=== PATIENT | male | born 1940 | race Caucasian/White ===

== ENCOUNTER 2017-02-24 21:59 | Emergency (ER) | payer MEDICARE, MEDICAID ==
[2017-02-24 22:16] VITALS: BP 144/76
--- NOTE | 2017-02-24 22:46 | EDM.PDOC ---
[id number] Complaint: RIGHT LEG SWOLLEN Time Seen by Provider: 02/24/17 22:28 Source of Information: Reports: Patient History Limitations: Reports: No Limitations - History of Present Illness INITIAL COMMENTS - FREE TEXT/NARRATIVE: 76 y/o M presents with RLE pain/swelling. He is 5 days post=op from R hip replacement completed at [facility] by Dr. Chinchilla. States he thinks everything went well. He was discharged 3 days ago. He comes in for evaluation because today he noticed that his right leg has become increasingly swollen and painful. He states that he did not have any injury to the leg. He has been getting around okay. He's been taking his medication as prescribed and has had good pain control. He is mostly concerned that the leg itself seems bigger and more swollen today. He was advised by someone that he spoke to with the orthopedic office who encouraged him to come into the evaluated for a blood clot. No chest pain or shortness of breath. No fever. No additional complaint. No numbness. No weakness. Right Hip Pain Score (Numeric/FACES): 6 - Related Data Allergies Allergy/AdvReac Type Severity Reaction Status Date / Time ezetimibe [From Vytorin] Allergy Cannot Verified 02/24/17 22:16 Remember Penicillins Allergy Hives Verified 02/24/17 22:16 pravastatin Allergy Cannot Verified 02/24/17 22:16 Remember simvastatin [From Vytorin] Allergy Cannot Verified 02/24/17 22:16 Remember rosuvastatin calcium AdvReac Muscle Verified 02/24/17 22:16 [From Crestor] Aches Home Meds: Home Meds Nitroglycerin [Nitrostat] 0.4 mg PO ONCALL PRN 11/05/15 [History] Acetaminophen 650 mg PO Q6H PRN 02/24/17 [History] Aspirin 325 mg PO BID 02/24/17 [History] Ibuprofen 1 - 2 tab PO ASDIRECTED PRN 02/24/17 [History] Meloxicam 15 mg PO DAILY 02/24/17 [History] Multivitamin [Multivitamins] 1 mg PO DAILY 02/24/17 [History] Sennosides/Docusate Sodium [Senna-Docusate Sodium] 1 tab PO BID 02/24/17 [ History] oxyCODONE 1 - 2 tab PO Q4H PRN 02/24/17 [History] traMADol [Ultram] 50 mg PO Q6H PRN 02/24/17 [History] Past Medical History HEENT History: Reports: Impaired Vision Other HEENT History: wears eyeglasses Cardiovascular History: Reports: CAD, High Cholesterol, MS, SOB on Exertion Gastrointestinal History: Reports: GERD Genitourinary History: Reports: Other (See Below) Other Genitourinary History: prostate CA Musculoskeletal History: Reports: Osteoarthritis Oncologic (Cancer) History: Reports: Prostate - Infectious Disease History Infectious Disease History: Reports: Chicken Pox - Past Surgical History Cardiovascular Surgical History: Reports: Carotid Stents Musculoskeletal Surgical History: Reports: Hip Replacement Social & Family History - Tobacco Use Smoking Status *Q: Never Smoker Second Hand Smoke Exposure: No - Caffeine Use Caffeine Use: Reports: Coffee - Recreational Drug Use Recreational Drug Use: No - Living Situation & Occupation Living situation: Reports: Occupation: Retired Review of Systems - Review of Systems Review Of Systems: See Below Constitutional: Denies: Fever Respiratory: Denies: Shortness of Breath, Cough Cardiovascular: Denies: Chest Pain GI/Abdominal: Denies: Abdominal Pain Musculoskeletal: Reports: Leg Pain Neurological: Reports: No Symptoms. Denies: Paresthesia ED EXAM, GENERAL - Physical Exam Exam: See Below Exam Limited By: No Limitations General Appearance: Alert, WD/WN, No Apparent Distress Eye Exam: Bilateral Eye: PERRL Ears: Normal External Exam Nose: Normal Inspection, Normal Mucosa, No Blood Throat/Mouth: Normal Inspection, Normal Voice, No Airway Compromise Head: Atraumatic, Normocephalic Neck: Normal Inspection, Supple, Non-Tender, Full Range of Motion Respiratory/Chest: No Respiratory Distress, Lungs Clear, Normal Breath Sounds, Chest Non-Tender Cardiovascular: Normal Peripheral Pulses, Regular Rate, Rhythm, No Murmur GI/Abdominal: Soft, Non-Tender, No Distention. No: Rebound Extremities: Other (R hip incision with andrzej in place, no discharge, no surrounding erythema/TTP. Entire RLE is swollen compared to left, from hip through foot. Skin throughout is mildly erythematous and warm to the touch. Mild calf TTP. No crepitus. Foot is warm and well perfused, 2+ DP pulse. Distal motor/sensation intact.) Neurological: Alert, Oriented, Normal Cognition, No Motor/Sensory Deficits Psychiatric: Normal Affect, Normal Mood Skin Exam: Warm, Dry, Intact Course - Vital Signs Last Recorded V/S: Last Vital Signs Temp 36.9 C 02/24/17 22:10 Pulse 79 02/24/17 22:10 Resp 18 02/24/17 22:10 BP 144/76 H 02/24/17 22:10 Pulse Ox 92 L 02/24/17 22:10 - Orders/Labs/Meds Orders: Active Orders 24 hr Category Date Time Status VL Duplex Lwr Ext Veins Ltd Rt [US] Stat Exams 02/24/17 22:46 Taken Labs: Laboratory Tests 02/24/17 02/24/17 Range/Units 23:14 23:14 WBC 8.25 (4.23-9.07) K/mm3 RBC 3.70 L (4.63-6.08) M/mm3 Hgb 11.5 L (13.7-17.5) gm/L Hct 33.4 L (40.1-51.0) % MCV 90.3 (79.0-92.2) fl MCH 31.1 (25.7-32.2) pg MCHC 34.4 (32.2-35.5) g/dl RDW Std Deviation 40.9 (35.1-43.9) fL Plt Count 234 (163-337) K/mm3 MPV 7.8 L (9.4-12.3) fl Neut % (Auto) 77.8 H (34.0-67.9) % Lymph % (Auto) 10.5 L (21.8-53.1) % [place] % (Auto) 6.9 (5.3-12.2) % Eos % (Auto) 4.1 (0.8-7.0) Baso % (Auto) 0.5 (0.1-1.2) % Neut # (Auto) 6.41 H (1.78-5.38) K/mm3 Lymph # (Auto) 0.87 L (1.32-3.57) K/mm3 [place] # (Auto) 0.57 (0.30-0.82) K/mm3 Eos # (Auto) 0.34 (0.04-0.54) K/mm3 Baso # (Auto) 0.04 (0.01-0.08) K/mm3 Sodium 138 (136-145) mEq/L Potassium 4.6 (3.5-5.1) mEq/L Chloride 103 (98-107) mEq/L Carbon Dioxide 28 (21-32) mEq/L Anion Gap 11.6 (5-15) BUN 13 (7-18) mg/dL Creatinine 1.0 (0.7-1.3) mg/dL Est Cr Clr Drug Dosing 60.59 mL/min Estimated GFR (MDRD) > 60 (>60) mL/min BUN/Creatinine Ratio 13.0 L (14-18) Glucose 150 H (83-115) mg/dL Calcium 8.5 (8.5-10.1) mg/dL Total Bilirubin 0.5 (0.2-1.0) mg/dL AST 54 H (15-37) U/L ALT 59 (16-63) U/L Alkaline Phosphatase 101 (46-116) U/L Total Protein 6.6 (6.4-8.2) g/dl Albumin 2.6 L (3.4-5.0) g/dl Globulin 4.0 gm/dL Albumin/Globulin Ratio 0.7 L (1-2) Meds: Medications Discontinued Medications Generic Name Dose Route Start Last Admin Trade Name Freq PRN Reason Stop Dose Admin Oxycodone/Acetaminophen 1 tab 02/25/17 01:27 02/25/17 01:30 Percocet 325-5 Mg PO 02/25/17 01:28 1 tab STAT STA Administration - Re-Assessments/Exams Free Text/Narrative Re-Assessment/Exam: 02/25/17 01:08 RLE venous doppler neg for DVT. Reexamined pt. Exam is not really c/w with cellulitis as entire leg is swollen, not particularly warm to touch. Labs normal. Suspect expected post-op swelling/course. Discussed with Dr. Emery, orthopedics with [facility], who agrees and has no additional specific concerns. Has f/u scheduled with Dr. Chinchilla in [place] in 3 days (Sunday). Discussed return precautions. 02/25/17 02:48 Departure - Departure Time of Disposition: 01:18 Disposition: Home, Self-Care 01 Clinical Impression: Right leg swelling - Discharge Information Instructions: Edema, [id number] Referrals: Tammy De Jesus MD [Primary Care Provider] - Forms: ED Department Discharge Additional Instructions: 1. It is ok to prop up leg on a couple of pillows when you are lying in bed. This will help with the swelling. 2. Follow up with Dr. Chinchilla as planned. 3. Return to the Emergency Department if you have worsening pain, fever, worsening swelling, or other concerning symptoms. - My Orders Last 24 Hours: My Active Orders 02/24/17 22:46 VL Duplex Lwr Ext Veins Ltd Rt [US] Stat - Assessment/Plan Last 24 Hours: My Active Orders 02/24/17 22:46 VL Duplex Lwr Ext Veins Ltd Rt [US] Stat
[2017-02-25] MEDS ORDERED: Acetaminophen/oxyCODONE 325-5 MG Tab PO STA (01:27)
--- NOTE | 2017-02-25 06:50 | US ---
Right lower extremity deep venous ultrasound: Duplex and color flow imaging was obtained of the right common femoral, proximal greater saphenous, superficial femoral, popliteal, posterior tibial and peroneal veins. Left common femoral vein was also evaluated. Findings: Normal phasic flow, augmentation and compression are seen. Impression: 1. No evidence of deep venous thrombosis is seen within the right lower extremity or within the left common femoral vein. I agree with preliminary report issued by [facility] ([facility] report finalized on 02/25/17, 1:35 AM Central Time)
== END 2017-02-25 01:30 | disposition home or self-care (01) ==
LOC: JD.ED 21:59
DX: M79.89 Other specified soft tissue disorders (principal); I25.10 Atherosclerotic heart disease of native coronary artery without angina pectoris; E78.00 Pure hypercholesterolemia, unspecified; I25.2 Old myocardial infarction; K21.9 Gastro-esophageal reflux disease without esophagitis; M19.90 Unspecified osteoarthritis, unspecified site; Z88.0 Allergy status to penicillin; Z88.8 Allergy status to other drugs, medicaments and biological substances; Z79.82 Long term (current) use of aspirin; Z79.899 Other long term (current) drug therapy; Z96.641 Presence of right artificial hip joint
CPT/HCPCS: 36415; 80053; 85025; 93971; 99284; A9270; 99283

== ENCOUNTER 2017-12-27 09:47 | Day surgery (SDC) | payer MEDICARE, MEDICAID ==
[~2017-12-27 09:47] MED LIST: Dexamethasone 4 MG/ML 5 ML MDV ONE; Lactated Ringers 1,000 ML IV SCH; Lactated Ringers 1,000 ML ONE; Lidocaine 1% 4 ML ONE; Lidocaine 1%/Sod Bicarbonate in NS 8.4% 1 ML Syringe IDERM PRN; Ondansetron 4 MG/2 ML SDV ONE; Propofol 200 MG/20 ML SDV ONE; Sodium Chloride 0.9% 10 ML Syringe FLUSH PRN; ceFAZolin 1 GM Vial ONE; fentaNYL 100 MCG/2 ML SDV ONE
--- NOTE | 2017-12-27 10:29 | PCM.PREANE ---
Preanesthetic Assessment - Anesthesia/Transfusion/Family Hx Anesthesia History: Prior Anesthesia Without Reaction Family History of Anesthesia Reaction: No Transfusion History: No Prior Transfusion(s) Intubation History: Unknown - Review of Systems General: No Symptoms Pulmonary: No Symptoms Cardiovascular: No Symptoms (History of CO, angioplasty in 2006 with 3 stents placed as well, HTN, CAD), Chest Pain (6 months ago with nitroglycerin taken.), Lightheadedness (postural changes.) Gastrointestinal: No Symptoms (GERD) Neurological: No Symptoms, Numbness (CTS- bilateral hands) Other: Reports: None, Easy Bruising - Physical Assessment NPO Status Date: 12/26/17 NPO Status Time: 22:00 Pulse: 50 O2 Sat by Pulse Oximetry: 94 Respiratory Rate: 18 Blood Pressure: 143/81 Temperature: 36.3 C Height: 1.6 m Weight: 80 kg ASA Class: 3 Mental Status: Alert & Oriented x3 Airway Class: Mallampati = 2 Dentition: Reports: Normal Dentition, Missing Tooth/Teeth, Caries Thyro-Mental Finger Breadths: 3 Mouth Opening Finger Breadths: 3 ROM/Head Extension: Full Lungs: Clear to Auscultation, Normal Respiratory Effort Cardiovascular: Regular Rate, Regular Rhythm, No Murmurs - Lab Values: Lab values reviewed and noted and within acceptable ranges to proceed with scheduled procedure. MRSA negative. - Imaging/EKG Impressions: EK11/13/2016/ SB, borderline left axis deviation, Inferior Twave abnormalities. Echocardiogram: EF 70-75%, Mild mitral valve regurgitation Stress Test: (2017) unremarkable EK-SR rate= 51 - Allergies Allergies/Adverse Reactions: Allergies Allergy/AdvReac Type Severity Reaction Status Date / Time ezetimibe [From Vytorin] Allergy Cannot Verified 12/26/17 15:40 Remember Penicillins Allergy Hives Verified 12/26/17 15:40 pravastatin Allergy Cannot Verified 12/26/17 15:40 Remember simvastatin [From Vytorin] Allergy Cannot Verified 12/26/17 15:40 Remember rosuvastatin calcium AdvReac Muscle Verified 12/26/17 15:40 [From Crestor] Aches - Anesthesia Plan Pre-Op Medication Ordered: None - Acknowledgements Anesthesia Type Planned: General Anesthesia, MAC Pt an Appropriate Candidate for the Planned Anesthesia: Yes Alternatives and Risks of Anesthesia Discussed w Pt/Guardian: Yes Pt/Guardian Understands and Agrees with Anesthesia Plan: Yes PreAnesthesia Questionnaire HEENT History: Reports: Allergic Rhinitis, Impaired Vision Other HEENT History: wears eyeglasses Cardiovascular History: Reports: CAD, High Cholesterol, CO, SOB on Exertion, Stents, Other (See Below) Other Cardiovascular History: bradycardia Respiratory History: Reports: None Gastrointestinal History: Reports: GERD Genitourinary History: Reports: BPH, Other (See Below) Other Genitourinary History: prostate CA [employer]GROUND [employer]UCK [employer] History: Reports: None Musculoskeletal History: Reports: Osteoarthritis, Other (See Below) Other Musculoskeletal History: carpal tunnel syndrome, restless leg syndrome Neurological History: Reports: None Psychiatric History: Reports: None Endocrine/Metabolic History: Reports: None Hematologic History: Reports: None Immunologic History: Reports: None Oncologic (Cancer) History: Reports: Prostate, Squamous Cell Carcinoma - Infectious Disease History Infectious Disease History: Reports: Chicken Pox - Past Surgical History Cardiovascular Surgical History: Reports: Carotid Stents Respiratory Surgical History: Reports: None GI Surgical History: Reports: None Female Surgical History: Reports: None Male Surgical History: Reports: None Endocrine Surgical History: Reports: None Neurological Surgical History: Reports: None Musculoskeletal Surgical History: Reports: Hip Replacement Dermatological Surgical History: Reports: Skin Biopsy, Other (See Below) - SUBSTANCE USE Smoking Status *Q: Never Smoker Recreational Drug Use History: No - HOME MEDS Home Medications: Home Meds Acetaminophen 650 mg PO Q6H PRN 02/24/17 [History] Multivitamin [Multivitamins] 1 mg PO DAILY 02/24/17 [History] Aspirin [Adult Aspirin] 81 mg PO DAILY 12/26/17 [History] Ibuprofen 600 mg PO Q6H PRN 12/26/17 [History] Nitroglycerin [Nitrostat] 0.4 mg PO Q5M PRN 12/26/17 [History] Pantoprazole Sodium [Protonix] 40 mg PO DAILY 12/26/17 [History] Propylene Glycol/PEG 400/Pf [Systane 0.3-0.4% Eye Drops] 1 drop EYEBOTH ASDIRECTED 12/26/17 [History] [place] 500 mg PO DAILY 12/26/17 [History] Tamsulosin [Flomax] 0.4 mg PO DAILY 12/26/17 [History] Zinc 50 mg PO DAILY 05/23/18 [History] - CURRENT (IN HOUSE) MEDS Current Meds: Current Medications Lactated Ringer's (Ringers, Lactated) 1,000 mls @ 125 mls/hr IV ASDIRECTED YORDY Stop: 12/27/17 23:00 Lidocaine/Sodium Bicarbonate (Buffered Lidocaine 1% In Ns 8.4%) 0.25 ml IDERM ONETIME PRN PRN Reason: Prior to IV Start Stop: 12/27/17 18:00 Sodium Chloride (Saline Flush) 10 ml FLUSH ASDIRECTED PRN PRN Reason: Keep Vein Open Stop: 12/27/17 18:00 Discontinued Medications Cefazolin Sodium (Ancef) Confirm Administered Dose 2 gm .ROUTE .STK-MED ONE Stop: 12/27/17 07:50 Dexamethasone (Dexamethasone) Confirm Administered Dose 20 mg .ROUTE .STK-MED ONE Stop: 12/27/17 07:51 Fentanyl (Sublimaze) Confirm Administered Dose 100 mcg .ROUTE .STK-MED ONE Stop: 12/27/17 07:51 Lactated Ringer's (Ringers, Lactated) Confirm Administered Dose 1,000 mls @ as directed .ROUTE .STK-MED ONE Stop: 12/27/17 07:50 Lidocaine HCl (Xylocaine-Mpf 1%) Confirm Administered Dose 4 mls @ as directed .ROUTE .STK-MED ONE Stop: 12/27/17 07:51 Ondansetron HCl (Zofran) Confirm Administered Dose 4 mg .ROUTE .STK-MED ONE Stop: 12/27/17 07:50 Propofol (Diprivan 20 Ml) Confirm Administered Dose 400 mg .ROUTE .STK-MED ONE Stop: 12/27/17 07:51
[2017-12-27] MEDS ORDERED: Propofol 200 MG/20 ML SDV ONE (10:45)
[2017-12-27] MEDS ORDERED: Ketamine 500 mg/10 ML MDV ONE (10:46)
[2017-12-27] MEDS ORDERED: Bupivacaine 0.5% 30 ML SDV ONE (11:07)
[2017-12-27] MEDS ORDERED: Lidocaine 1% 30 ML SDV ONE (11:07)
[2017-12-27] MEDS ORDERED: Ketorolac 30 MG/ML SDV ONE (12:39)
--- NOTE | 2017-12-27 12:51 | PCM.OPNOTE ---
- General Post-Op/Procedure Note Date of Surgery/Procedure: 12/27/17 Operative Procedure(s): left inguinal hernia repair with mesh Pre Op Diagnosis: left inguinal hernia indirect Post-Op Diagnosis: Same Anesthesia Technique: MAC Primary Surgeon: Aiden Monroe EBL in mLs: 15 Complications: None Condition: Good
--- NOTE | 2017-12-27 13:00 | PCM48HPAN ---
Post Anesthesia Note - EVALUATION WITHIN 48HRS OF ANESTHETIC Vital Signs in Normal Range: Yes Patient Participated in Evaluation: Yes Respiratory Function Stable: Yes Airway Patent: Yes Cardiovascular Function Stable: Yes Hydration Status Stable: Yes Pain Control Satisfactory: Yes Nausea and Vomiting Control Satisfactory: Yes Mental Status Recovered: Yes Pulse Rate: 55 SaO2: 93 Resp Rate: 14 Temperature: 36.4 C Blood Pressure: 112/78
[2017-12-27] MEDS ORDERED: Acetaminophen/HYDROcodone 325-5 MG Tab PO PRN (13:05)
[2017-12-27 14:04] VITALS: BP 129/80
--- NOTE | 2017-12-27 15:43 | OR ---
DATE OF OPERATION: 12/27/2017 SURGEON: Aiden Monroe MD PREOPERATIVE DIAGNOSIS: Left inguinal hernia. POSTOPERATIVE DIAGNOSIS: Left inguinal hernia. OPERATION PERFORMED: Left inguinal hernia repair with mesh. FINDINGS: Indirect inguinal hernia with a hernia sac extending long-term down the cord and patulous internal ring. ANESTHESIA: Procedure done under IV sedation and local anesthetic 1% Xylocaine, 0.5% Marcaine in a 50:50 mixture. ESTIMATED BLOOD LOSS: About 15 mL. DESCRIPTION OF PROCEDURE: The patient was taken to the operating room, placed in a supine position, connected to monitoring equipment, and given IV sedation. Antibiotics were given. SCDs were placed and the abdomen was clipped and prepped with chlorhexidine and alcohol prep and draped off in a sterile fashion. A 50:50 mixture of 0.5% Marcaine, 1% Xylocaine was infiltrated in the tissue, in the skin, in a subcuticular tissue, and deeper tissues as needed. Transverse incision was made and carried down by sharp dissection to the external oblique fascia and this was opened from internal to external ring. The cord mobilized at the pubic tubercle with a Gordon drain. The hernia sac was identified and dissected from the cord structures, it opened up, and the fat contained within it was reduced and it was then twisted and transfixed with a 2-0 Vicryl suture. The redundant sac amputated. The internal ring was then narrowed with a series of 2-0 Ethibond suture, bringing the transversalis fascia, shelving edge of the inguinal ligament, and thus narrowed the internal ring to admit the index finger. A mesh was then placed on this repair suturing it to the shelving edge of the inguinal ligament with a running 2-0 Surgilon suture and the medial side of the mesh was sutured to the internal oblique muscle with interrupted 2-0 Ethibond suture. Tails were fashioned and wrapped around the internal ring and sutured each other and tucked up under the external oblique fascia. The cord was allowed to fall back on this repair. Care was taken to preserve the ilioinguinal, iliohypogastric nerve. External oblique fascia was then reconstituted with a running 3-0 Vicryl suture. Lizbet's fascia brought together with interrupted 3-0 Vicryl suture and the skin with a running subdermal 4-0 Dexon suture. Steri-Strips and sterile dressing placed. The patient tolerated the procedure and sent to recovery room in a stable condition. MMODAL /[id number]
== END 2017-12-27 14:08 | disposition home or self-care (01) ==
LOC: JD.SDS 09:47
PROVIDERS: ATTEND Surgery
DX: K40.90 Unilateral inguinal hernia, without obstruction or gangrene, not specified as recurrent (principal); J30.2 Other seasonal allergic rhinitis; I10 Essential (primary) hypertension; I25.10 Atherosclerotic heart disease of native coronary artery without angina pectoris; M16.10 Unilateral primary osteoarthritis, unspecified hip; K21.9 Gastro-esophageal reflux disease without esophagitis; E78.00 Pure hypercholesterolemia, unspecified; C61 Malignant neoplasm of prostate; G25.81 Restless legs syndrome; G56.03 Carpal tunnel syndrome, bilateral upper limbs; Z79.82 Long term (current) use of aspirin; Z79.899 Other long term (current) drug therapy; Z88.0 Allergy status to penicillin; Z88.8 Allergy status to other drugs, medicaments and biological substances; Z95.5 Presence of coronary angioplasty implant and graft; Z96.641 Presence of right artificial hip joint; Z98.890 Other specified postprocedural states
CPT/HCPCS: A9270-GY; C1781; J0690; J1100; J1885; J2001; J2405; J2704; J3010; J7120

== ENCOUNTER 2022-04-12 10:37 | Inpatient (IN) | payer MEDICARE, MEDICAID ==
[2022-04-12] MEDS ORDERED: Acetaminophen 325 MG Tab PO PRN (17:49)
[2022-04-12] MEDS: Pantoprazole 40 MG Tab.CR PO SCH (17:59)
[2022-04-12] MEDS: Tamsulosin 0.4 MG Cap.ER PO SCH ×2 (17:59→20:32)
[2022-04-12] MEDS: Aspirin 325 MG Tab.EC PO SCH (17:59)
[2022-04-12] MEDS: Sertraline 50 MG Tab PO SCH (21:17)
[2022-04-13] MEDS: Tamsulosin 0.4 MG Cap.ER PO SCH ×2 (08:00→20:27)
[2022-04-13] MEDS: Pantoprazole 40 MG Tab.CR PO SCH (08:00)
[2022-04-13] MEDS: Sertraline 50 MG Tab PO SCH (08:00)
[2022-04-13] MEDS: Aspirin 325 MG Tab.EC PO SCH (08:00)
[2022-04-13 16:56] VITALS: PULSE 54
[2022-04-14] MEDS: Aspirin 325 MG Tab.EC PO SCH (08:55)
[2022-04-14] MEDS: Tamsulosin 0.4 MG Cap.ER PO SCH (08:55)
[2022-04-14] MEDS: Pantoprazole 40 MG Tab.CR PO SCH (08:55)
[2022-04-14] MEDS: Sertraline 50 MG Tab PO SCH (08:55)
[2022-04-14] MEDS ORDERED: Clopidogrel 75 MG Tab PO SCH (09:00)
[2022-04-14 14:42] VITALS: BP 127/69
== END 2022-04-14 13:13 | disposition home health service (06) | DRG 65 ==
LOC: JD.ED 10:37 → JD.ICU 15:21 → JD.ED 15:58
PROVIDERS: ADMIT Pediatrics; ATTEND Pediatrics
DX: I63.20 Cerebral infarction due to unspecified occlusion or stenosis of unspecified precerebral arteries (principal); G81.91 Hemiplegia, unspecified affecting right dominant side; R53.1 Weakness; G45.9 Transient cerebral ischemic attack, unspecified; W19.XXXA Unspecified fall, initial encounter; R09.02 Hypoxemia; G25.81 Restless legs syndrome; Z96.641 Presence of right artificial hip joint; I25.10 Atherosclerotic heart disease of native coronary artery without angina pectoris; I25.2 Old myocardial infarction; Z95.5 Presence of coronary angioplasty implant and graft; E78.00 Pure hypercholesterolemia, unspecified; Z86.16 Personal history of COVID-19; Z98.42 Cataract extraction status, left eye; Z98.41 Cataract extraction status, right eye; Z87.19 Personal history of other diseases of the digestive system; K21.9 Gastro-esophageal reflux disease without esophagitis; N40.0 Benign prostatic hyperplasia without lower urinary tract symptoms; M19.90 Unspecified osteoarthritis, unspecified site; Z85.46 Personal history of malignant neoplasm of prostate; Z85.828 Personal history of other malignant neoplasm of skin; Z97.3 Presence of spectacles and contact lenses; W18.30XA Fall on same level, unspecified, initial encounter; Y92.009 Unspecified place in unspecified non-institutional (private) residence as the place of occurrence of the external cause; Z88.0 Allergy status to penicillin; Z88.8 Allergy status to other drugs, medicaments and biological substances; Z79.82 Long term (current) use of aspirin; Z79.899 Other long term (current) drug therapy; Z20.822 Contact with and (suspected) exposure to COVID-19
CPT/HCPCS: 36415; 70450; 71045; 80053; 81001; 82947; 83605; 83735; 83880; 84443; 84484; 85007; 85027; 85379; 85610; 85730; 86140; 87040 ×2; 93005; 99285; U0002; 70551; 70551-26; 80048; 80061; 85025; 93880; 93880-26; 97116-GP; 97161-GP; A9270-GY

== ENCOUNTER 2022-11-12 11:54 | Emergency (ER) | payer MEDICARE, MEDICAID ==
[2022-11-12] MEDS ORDERED: Sodium Chloride 0.9% 10 ML Syringe FLUSH PRN (12:19)
[2022-11-12] MEDS ORDERED: Famotidine 20 MG/2 ML SDV IVPUSH ONE (12:20)
[2022-11-12] MEDS ORDERED: Alum Hydrox/Mag Hydrox/Simeth 30 ML, Lidocaine 2% 15 ML PO ONE ×2 (12:20)
[2022-11-12] MEDS ORDERED: HYDROmorphone 0.5 MG/0.5 ML Syringe IVPUSH ONE (12:20)
[2022-11-12] MEDS ORDERED: Sodium Chloride 0.9% 1,000 ML IV SCH (12:30)
[2022-11-12 16:31] VITALS: BP 146/85; PULSE 52
== END 2022-11-12 16:15 | disposition home or self-care (01) ==
LOC: JD.ED 11:54
DX: R10.13 Epigastric pain (principal); R07.89 Other chest pain; I25.10 Atherosclerotic heart disease of native coronary artery without angina pectoris; E78.00 Pure hypercholesterolemia, unspecified; I25.2 Old myocardial infarction; N40.0 Benign prostatic hyperplasia without lower urinary tract symptoms; Z88.0 Allergy status to penicillin; Z88.8 Allergy status to other drugs, medicaments and biological substances; Z79.82 Long term (current) use of aspirin; Z79.899 Other long term (current) drug therapy; Z79.02 Long term (current) use of antithrombotics/antiplatelets; Z86.16 Personal history of COVID-19
CPT/HCPCS: 36415; 71045; 74177; 80053; 83690; 84484; 85025; 93005; 96361; 96374; 96375; 99284; A9270; J1170; J3490; J7030; 93010

== ENCOUNTER 2022-12-21 06:56 | Emergency (ER) | payer MEDICARE, MEDICAID ==
[2022-12-21] MEDS ORDERED: Ondansetron 4 MG/2 ML SDV IVPUSH ONE ×3 (07:05→09:26)
[2022-12-21] MEDS ORDERED: Sodium Chloride 0.9% 10 ML Syringe FLUSH PRN ×2 (07:05→11:53)
[2022-12-21] MEDS ORDERED: Alum Hydrox/Mag Hydrox/Simeth 30 ML, Lidocaine 2% 15 ML PO ONE ×4 (07:06)
[2022-12-21] MEDS ORDERED: Sodium Chloride 0.9% 1,000 ML IV SCH (07:15)
[2022-12-21 07:36] LABS: BASOPHILS ABSOLUTE AUTO 0.02 K/mm3 (0.01-0.08); BASOPHILS PERCENT AUTO 0.2 % (0.1-1.2); EOSINOPHILS ABSOLUTE AUTO 0.04 K/mm3 (0.04-0.54); EOSINOPHILS PERCENT AUTO 0.5 (0.8-7.0); HEMATOCRIT 40.4 % (40.1-51.0); IMMATURE GRAN ABSOLUTE AUTO 0.01 K/mm3 (0.00-0.10); IMMATURE GRAN PERCENT AUTO 0.1 % (<=1.0); LYMPHOCYTES ABSOLUTE AUTO 0.74 K/mm3 (1.32-3.57); LYMPHOCYTES PERCENT AUTO 8.8 % (21.8-53.1); MEAN CORPUSCULAR HEMOGLOBIN 31.2 pg (25.7-32.2); MEAN CORPUSCULAR HGB CONC 34.7 g/dl (32.2-35.5); MEAN PLATELET VOLUME 8.3 fl (9.4-12.3); MONOCYTES ABSOLUTE AUTO 0.25 K/mm3 (0.30-0.82); NEUTROPHILS ABSOLUTE AUTO 7.32 K/mm3 (1.78-5.38); NEUTROPHILS PERCENT AUTO 87.4 % (34.0-67.9); PLATELET COUNT,PLT 196 K/mm3 (163-337); RED BLOOD CELL COUNT 4.49 M/mm3 (4.63-6.08); WHITE BLOOD CELL COUNT,WBC 8.38 K/mm3 (4.23-9.07)
[2022-12-21] MEDS ORDERED: Pantoprazole 40 MG Vial IVPUSH ONE (07:38)
[2022-12-21] MEDS ORDERED: fentaNYL 100 MCG/2 ML SDV IVPUSH ONE (07:38)
[2022-12-21 07:49] LABS: A/G RATIO 0.8 (1-2); ALBUMIN 3.3 g/dl (3.4-5.0); ANION GAP 11.6 (5-15); BILIRUBIN TOTAL 0.3 mg/dL (0.2-1.0); BUN/CREATININE RATIO 10.8 (14-18); C-REACTIVE PROTEIN 0.3 mg/dL (<1.0); CALCIUM 8.7 mg/dL (8.5-10.1); CREATININE 1.2 mg/dL (0.7-1.3); EST CRCL DRUG DOSING (CG) 45.9 mL/min; MAGNESIUM 1.8 mg/dL (1.8-2.4); POTASSIUM,K 3.6 mEq/L (3.5-5.1); PROTEIN TOTAL,TP 7.5 g/dl (6.4-8.2)
[2022-12-21] MEDS ORDERED: HYDROmorphone 1 MG/ML Syringe IVPUSH ONE (08:12)
[2022-12-21] MEDS ORDERED: HYDROmorphone 0.5 MG/0.5 ML Syringe IVPUSH ONE (08:17)
[2022-12-21] MEDS ORDERED: traMADol 50 MG Tab PO ONE (10:10)
[2022-12-21 10:36] LABS: APPEARANCE,URINE CLEAR (Clear); BILIRUBIN,URINE NEGATIVE (Negative); COLOR,URINE YELLOW (Yellow); GLUCOSE,URINE 2+ (Negative); KETONES,URINE NEGATIVE (Negative); LEUKOCYTE ESTERASE,URINE NEGATIVE (Negative); NITRITE,URINE NEGATIVE (Negative); OCCULT BLOOD,URINE 2+ (Negative); PROTEIN,URINE 2+ (Negative); UROBILINOGEN,URINE 0.2 (0.2-1.0)
[2022-12-21 11:24] LABS: BACTERIA,URINE FEW /hpf (FEW); EPITHELIAL CELLS,URINE 0-5 /hpf (0-5); MUCUS,URINE MODERATE /hpf (FEW); WBC,URINE 0-5 /hpf (0-5)
[2022-12-21] MEDS ORDERED: Iopamidol 612 MG/ML 100 ML Bottle IVPUSH ONE (11:53)
[2022-12-21] MEDS ORDERED: Acetaminophen 325 MG Tab PO ONE (14:11)
[2022-12-21 14:12] VITALS: BP 149/75; PULSE 69
== END 2022-12-21 16:12 | disposition home or self-care (01) ==
LOC: JD.ED 06:56
DX: K80.70 Calculus of gallbladder and bile duct without cholecystitis without obstruction (principal); I25.10 Atherosclerotic heart disease of native coronary artery without angina pectoris; E78.00 Pure hypercholesterolemia, unspecified; I25.2 Old myocardial infarction; N40.0 Benign prostatic hyperplasia without lower urinary tract symptoms; Z88.0 Allergy status to penicillin; Z88.8 Allergy status to other drugs, medicaments and biological substances; Z79.899 Other long term (current) drug therapy; Z79.82 Long term (current) use of aspirin; Z79.02 Long term (current) use of antithrombotics/antiplatelets; Z86.73 Personal history of transient ischemic attack (TIA), and cerebral infarction without residual deficits; Z86.16 Personal history of COVID-19
CPT/HCPCS: 36415; 71045; 74177; 76705; 80053; 81001; 83690; 83735; 84484; 85025; 86140; 93005; 96361; 96374; 96375; 99285; A9270; C9113; J1170; J2405; J3010; J3490; J7030; Q9967; 93010; 99284

== ENCOUNTER 2022-12-25 13:26 | Inpatient (IN) | payer MEDICARE, MEDICAID ==
[2022-12-25] MEDS ORDERED: Sodium Chloride 0.9% 10 ML Syringe FLUSH PRN (13:44)
[2022-12-25] MEDS ORDERED: Sodium Chloride 0.9% 500 ML IV STA (14:17)
[2022-12-25] MEDS ORDERED: Sodium Chloride 0.9% 1,000 ML IV STA ×2 (14:17→17:48)
[2022-12-25 14:22] LABS: BASOPHILS ABSOLUTE AUTO 0.02 K/mm3 (0.01-0.08); BASOPHILS PERCENT AUTO 0.2 % (0.1-1.2); EOSINOPHILS ABSOLUTE AUTO 0.01 K/mm3 (0.04-0.54); EOSINOPHILS PERCENT AUTO 0.1 (0.8-7.0); HEMATOCRIT 42.7 % (40.1-51.0); HEMOGLOBIN 14.7 gm/dl (13.7-17.5); IMMATURE GRAN ABSOLUTE AUTO 0.04 K/mm3 (0.00-0.10); IMMATURE GRAN PERCENT AUTO 0.4 % (<=1.0); LYMPHOCYTES PERCENT AUTO 5.9 % (21.8-53.1); MEAN CORPUSCULAR HEMOGLOBIN 30.9 pg (25.7-32.2); MEAN CORPUSCULAR HGB CONC 34.4 g/dl (32.2-35.5); MEAN CORPUSCULAR VOLUME 89.7 fl (79.0-92.2); MONOCYTES ABSOLUTE AUTO 0.69 K/mm3 (0.30-0.82); MONOCYTES PERCENT AUTO 6.8 % (5.3-12.2); NEUTROPHILS ABSOLUTE AUTO 8.83 K/mm3 (1.78-5.38); NEUTROPHILS PERCENT AUTO 86.6 % (34.0-67.9); PLATELET COUNT,PLT 129 K/mm3 (163-337); RED BLOOD CELL COUNT 4.76 M/mm3 (4.63-6.08); WHITE BLOOD CELL COUNT,WBC 10.19 K/mm3 (4.23-9.07)
[2022-12-25 14:47] LABS: A/G RATIO 0.5 (1-2); ALBUMIN 2.5 g/dl (3.4-5.0); BILIRUBIN TOTAL 0.7 mg/dL (0.2-1.0); CREATININE 1.8 mg/dL (0.7-1.3); EST CRCL DRUG DOSING (CG) 31.67 mL/min; PROTEIN TOTAL,TP 7.3 g/dl (6.4-8.2)
[2022-12-25 15:12] LABS: SLIDE REVIEW NORMAL SMEAR
[2022-12-25 15:26] LABS: C-REACTIVE PROTEIN 21.9 mg/dL (<1.0)
[2022-12-25 16:06] LABS: CORONAVIRUS COVID-19 NAA NEGATIVE (NEGATIVE); INFLUENZA A NAA NEGATIVE (NEGATIVE); RESPIRATORY SYNCYTIAL VIR NAA NEGATIVE (NEGATIVE)
[2022-12-25 16:48] LABS: APPEARANCE,URINE TURBID (Clear); BILIRUBIN,URINE 2+ (Negative); COLOR,URINE AMBER (Yellow); GLUCOSE,URINE NEGATIVE (Negative); KETONES,URINE TRACE (Negative); LEUKOCYTE ESTERASE,URINE 3+ (Negative); NITRITE,URINE POSITIVE (Negative); OCCULT BLOOD,URINE 3+ (Negative); PROTEIN,URINE 3+ (Negative)
[2022-12-25 17:09] LABS: RBC,URINE >100 /hpf (0-5); WBC,URINE >100 /hpf (0-5)
[2022-12-25 17:10] LABS: AMORPHOUS SEDIMENT,URINE MODERATE /hpf (NOT SEEN); BACTERIA,URINE MANY /hpf (FEW); FINE GRANULAR CASTS,URINE 0-5 /lpf (0-5); HYALINE CASTS,URINE 0-5 /lpf (0-5); MUCUS,URINE NOT SEEN /hpf (FEW)
[2022-12-25] MEDS ORDERED: cefTRIAXone 2 GM in Sodium Chloride 0.9% 100 ML IV ONE (17:10)
[2022-12-25] MEDS ORDERED: Loratadine 10 MG Tab PO PRN (18:48)
[2022-12-25] MEDS ORDERED: Ondansetron 4 MG/2 ML SDV IVPUSH PRN (18:52)
[2022-12-25] MEDS ORDERED: HYDROmorphone 0.5 MG/0.5 ML Syringe IVPUSH PRN (18:52)
[2022-12-25] MEDS ORDERED: Psyllium Husk Powder Sugar Free 5.85 GM Packet PO PRN (18:52)
[2022-12-25] MEDS ORDERED: hydrALAZINE 20 MG/ML SDV IVPUSH PRN (18:52)
[2022-12-25] MEDS ORDERED: Sodium Chloride 0.9% 1,000 ML IV SCH (19:00)
[2022-12-25] MEDS: Heparin Sodium 5,000 Units/ML Vial SUBCUT SCH (20:59)
[2022-12-25] MEDS: Calcium Carbonate/Vitamin D3 600 MG-200 Units Tab PO SCH (22:02)
[2022-12-25] MEDS: Famotidine 20 MG Tab PO SCH ×2 (22:02→23:24)
[2022-12-26] MEDS: Heparin Sodium 5,000 Units/ML Vial SUBCUT SCH (04:00)
[2022-12-26 06:05] LABS: BASOPHILS ABSOLUTE AUTO 0.04 K/mm3 (0.01-0.08); BASOPHILS PERCENT AUTO 0.4 % (0.1-1.2); EOSINOPHILS ABSOLUTE AUTO 0.01 K/mm3 (0.04-0.54); EOSINOPHILS PERCENT AUTO 0.1 (0.8-7.0); HEMATOCRIT 39.2 % (40.1-51.0); HEMOGLOBIN 13.4 gm/dl (13.7-17.5); IMMATURE GRAN ABSOLUTE AUTO 0.08 K/mm3 (0.00-0.10); IMMATURE GRAN PERCENT AUTO 0.8 % (<=1.0); LYMPHOCYTES PERCENT AUTO 8.4 % (21.8-53.1); MEAN CORPUSCULAR HEMOGLOBIN 30.9 pg (25.7-32.2); MEAN CORPUSCULAR HGB CONC 34.2 g/dl (32.2-35.5); MEAN CORPUSCULAR VOLUME 90.5 fl (79.0-92.2); MEAN PLATELET VOLUME 9.4 fl (9.4-12.3); MONOCYTES ABSOLUTE AUTO 0.88 K/mm3 (0.30-0.82); MONOCYTES PERCENT AUTO 8.3 % (5.3-12.2); NEUTROPHILS ABSOLUTE AUTO 8.75 K/mm3 (1.78-5.38); PLATELET COUNT,PLT 140 K/mm3 (163-337); RED BLOOD CELL COUNT 4.33 M/mm3 (4.63-6.08); WHITE BLOOD CELL COUNT,WBC 10.66 K/mm3 (4.23-9.07)
[2022-12-26 06:15] LABS: ANION GAP 14.6 (5-15); BUN/CREATININE RATIO 37.2 (14-18); CALCIUM 8.6 mg/dL (8.5-10.1); CREATININE 1.8 mg/dL (0.7-1.3); EST CRCL DRUG DOSING (CG) 31.67 mL/min; POTASSIUM,K 3.6 mEq/L (3.5-5.1)
[2022-12-26] MEDS: Pantoprazole 40 MG Tab.CR PO SCH (07:27)
[2022-12-26 08:16] LABS: SLIDE REVIEW ABNORMAL SMEAR
[2022-12-26] MEDS ORDERED: Aspirin 81 MG Tab.EC PO SCH (09:00)
[2022-12-26] MEDS: Multivitamin Tab PO SCH ×2 (09:34→09:51)
[2022-12-26] MEDS: Sertraline 50 MG Tab PO SCH (09:34)
[2022-12-26] MEDS: Famotidine 20 MG Tab PO SCH (09:34)
[2022-12-26] MEDS: Tamsulosin 0.4 MG Cap.ER PO SCH (09:34)
[2022-12-26] MEDS: Clopidogrel 75 MG Tab PO SCH (09:34)
[2022-12-26] MEDS: Calcium Carbonate/Vitamin D3 600 MG-200 Units Tab PO SCH ×3 (09:34→21:23)
[2022-12-26] MEDS ORDERED: Metoclopramide 10 MG/2 ML SDV IVPUSH ONE (14:00)
[2022-12-26] MEDS: Acetaminophen 325 MG Tab PO PRN (14:46)
[2022-12-26] MEDS: cefTRIAXone 1 GM in Sodium Chloride 0.9% 100 ML IV SCH (16:37)
[2022-12-26] MEDS: Sodium Chloride 0.9% 1,000 ML IV SCH (16:38)
[2022-12-26] MEDS: Metoclopramide 10 MG/2 ML SDV IVPUSH PRN (21:23)
[2022-12-27] MEDS: Sodium Chloride 0.9% 1,000 ML IV SCH ×2 (00:46→07:24)
[2022-12-27] MEDS: Pantoprazole 40 MG Tab.CR PO SCH (06:16)
[2022-12-27 07:49] LABS: BASOPHILS ABSOLUTE AUTO 0.12 K/mm3 (0.01-0.08); BASOPHILS PERCENT AUTO 1.2 % (0.1-1.2); EOSINOPHILS ABSOLUTE AUTO 0.02 K/mm3 (0.04-0.54); EOSINOPHILS PERCENT AUTO 0.2 (0.8-7.0); HEMATOCRIT 36.8 % (40.1-51.0); HEMOGLOBIN 12.5 gm/dl (13.7-17.5); IMMATURE GRAN ABSOLUTE AUTO 0.11 K/mm3 (0.00-0.10); IMMATURE GRAN PERCENT AUTO 1.1 % (<=1.0); LYMPHOCYTES ABSOLUTE AUTO 1.63 K/mm3 (1.32-3.57); LYMPHOCYTES PERCENT AUTO 15.8 % (21.8-53.1); MEAN CORPUSCULAR HEMOGLOBIN 30.9 pg (25.7-32.2); MEAN CORPUSCULAR VOLUME 90.9 fl (79.0-92.2); MEAN PLATELET VOLUME 9.4 fl (9.4-12.3); MONOCYTES PERCENT AUTO 4.8 % (5.3-12.2); NEUTROPHILS ABSOLUTE AUTO 7.94 K/mm3 (1.78-5.38); NEUTROPHILS PERCENT AUTO 76.9 % (34.0-67.9); PLATELET COUNT,PLT 158 K/mm3 (163-337); RED BLOOD CELL COUNT 4.05 M/mm3 (4.63-6.08); WHITE BLOOD CELL COUNT,WBC 10.32 K/mm3 (4.23-9.07)
[2022-12-27 08:25] LABS: ANION GAP 13.2 (5-15); BUN/CREATININE RATIO 33.8 (14-18); CALCIUM 8.1 mg/dL (8.5-10.1); CREATININE 1.6 mg/dL (0.7-1.3); EST CRCL DRUG DOSING (CG) 35.63 mL/min; POTASSIUM,K 3.2 mEq/L (3.5-5.1)
[2022-12-27] MEDS: Sertraline 50 MG Tab PO SCH (09:22)
[2022-12-27] MEDS: Famotidine 20 MG Tab PO SCH (09:22)
[2022-12-27] MEDS: Clopidogrel 75 MG Tab PO SCH (09:22)
[2022-12-27] MEDS: Multivitamin Tab PO SCH (09:22)
[2022-12-27] MEDS: Tamsulosin 0.4 MG Cap.ER PO SCH (09:22)
[2022-12-27] MEDS: Calcium Carbonate/Vitamin D3 600 MG-200 Units Tab PO SCH ×2 (09:22→22:15)
[2022-12-27] MEDS: Aspirin 81 MG Tab.EC PO SCH (09:23)
[2022-12-27] MEDS: Potassium Chloride 10 MEQ in Premix Bag 1 BAG IV SCH ×6 (10:04→17:52)
[2022-12-27 12:26] LABS: SLIDE REVIEW ABNORMAL SMEAR
[2022-12-27] MEDS ORDERED: Sodium Chloride 0.9% 1,000 ML IV SCH (12:45)
[2022-12-27] MEDS ORDERED: SODIUM CHLORIDE 0.45% IV SCH (17:30)
[2022-12-27] MEDS ORDERED: KCL IV SCH (17:30)
[2022-12-27] MEDS: Metoclopramide 10 MG/2 ML SDV IVPUSH PRN (17:50)
[2022-12-27] MEDS: cefTRIAXone 1 GM in Sodium Chloride 0.9% 100 ML IV SCH (17:55)
[2022-12-27] MEDS: Sodium Chloride 0.45% with KCl 1,000 ML IV SCH (18:40)
[2022-12-28] MEDS: Pantoprazole 40 MG Tab.CR PO SCH (06:03)
[2022-12-28 07:03] LABS: BASOPHILS PERCENT AUTO 1.8 % (0.1-1.2); EOSINOPHILS ABSOLUTE AUTO 0.12 K/mm3 (0.04-0.54); EOSINOPHILS PERCENT AUTO 1.1 (0.8-7.0); HEMATOCRIT 34.6 % (40.1-51.0); HEMOGLOBIN 11.8 gm/dl (13.7-17.5); IMMATURE GRAN ABSOLUTE AUTO 0.13 K/mm3 (0.00-0.10); IMMATURE GRAN PERCENT AUTO 1.2 % (<=1.0); LYMPHOCYTES ABSOLUTE AUTO 1.62 K/mm3 (1.32-3.57); LYMPHOCYTES PERCENT AUTO 14.9 % (21.8-53.1); MEAN CORPUSCULAR HGB CONC 34.1 g/dl (32.2-35.5); MEAN CORPUSCULAR VOLUME 90.8 fl (79.0-92.2); MEAN PLATELET VOLUME 9.8 fl (9.4-12.3); MONOCYTES ABSOLUTE AUTO 0.45 K/mm3 (0.30-0.82); MONOCYTES PERCENT AUTO 4.1 % (5.3-12.2); NEUTROPHILS ABSOLUTE AUTO 8.38 K/mm3 (1.78-5.38); NEUTROPHILS PERCENT AUTO 76.9 % (34.0-67.9); PLATELET COUNT,PLT 166 K/mm3 (163-337); RED BLOOD CELL COUNT 3.81 M/mm3 (4.63-6.08)
[2022-12-28 07:16] LABS: ANION GAP 13.7 (5-15); BUN/CREATININE RATIO 27.3 (14-18); CALCIUM 8.2 mg/dL (8.5-10.1); CREATININE 1.5 mg/dL (0.7-1.3); EST CRCL DRUG DOSING (CG) 38.14 mL/min; POTASSIUM,K 3.7 mEq/L (3.5-5.1)
[2022-12-28 07:31] LABS: C-REACTIVE PROTEIN 18.7 mg/dL (<1.0)
[2022-12-28] MEDS: Multivitamin Tab PO SCH (09:05)
[2022-12-28] MEDS: Clopidogrel 75 MG Tab PO SCH (09:05)
[2022-12-28] MEDS: Calcium Carbonate/Vitamin D3 600 MG-200 Units Tab PO SCH ×2 (09:05→20:38)
[2022-12-28] MEDS: Tamsulosin 0.4 MG Cap.ER PO SCH (09:05)
[2022-12-28] MEDS: Famotidine 20 MG Tab PO SCH (09:06)
[2022-12-28] MEDS: Sertraline 50 MG Tab PO SCH (09:06)
[2022-12-28] MEDS: Aspirin 81 MG Tab.EC PO SCH (09:06)
[2022-12-28] MEDS: Sodium Chloride 0.45% with KCl 1,000 ML IV SCH ×2 (10:59→16:29)
[2022-12-28] MEDS: Metoclopramide 10 MG/2 ML SDV IVPUSH PRN (11:12)
[2022-12-28] MEDS: cefTRIAXone 1 GM in Sodium Chloride 0.9% 100 ML IV SCH (17:04)
[2022-12-29] MEDS: Pantoprazole 40 MG Tab.CR PO SCH (06:43)
[2022-12-29] MEDS: Sodium Chloride 0.45% with KCl 1,000 ML IV SCH ×2 (06:44→21:57)
[2022-12-29 07:45] LABS: BASOPHILS ABSOLUTE AUTO 0.03 K/mm3 (0.01-0.08); BASOPHILS PERCENT AUTO 0.3 % (0.1-1.2); EOSINOPHILS ABSOLUTE AUTO 0.28 K/mm3 (0.04-0.54); EOSINOPHILS PERCENT AUTO 2.9 (0.8-7.0); HEMATOCRIT 33.1 % (40.1-51.0); HEMOGLOBIN 11.1 gm/dl (13.7-17.5); IMMATURE GRAN ABSOLUTE AUTO 0.08 K/mm3 (0.00-0.10); IMMATURE GRAN PERCENT AUTO 0.8 % (<=1.0); LYMPHOCYTES ABSOLUTE AUTO 1.19 K/mm3 (1.32-3.57); LYMPHOCYTES PERCENT AUTO 12.5 % (21.8-53.1); MEAN CORPUSCULAR HEMOGLOBIN 30.3 pg (25.7-32.2); MEAN CORPUSCULAR HGB CONC 33.5 g/dl (32.2-35.5); MEAN CORPUSCULAR VOLUME 90.4 fl (79.0-92.2); MEAN PLATELET VOLUME 9.4 fl (9.4-12.3); MONOCYTES ABSOLUTE AUTO 0.34 K/mm3 (0.30-0.82); MONOCYTES PERCENT AUTO 3.6 % (5.3-12.2); NEUTROPHILS PERCENT AUTO 79.9 % (34.0-67.9); PLATELET COUNT,PLT 190 K/mm3 (163-337); RED BLOOD CELL COUNT 3.66 M/mm3 (4.63-6.08); WHITE BLOOD CELL COUNT,WBC 9.52 K/mm3 (4.23-9.07)
[2022-12-29 08:12] LABS: ANION GAP 12.8 (5-15); BUN/CREATININE RATIO 25.7 (14-18); CALCIUM 7.7 mg/dL (8.5-10.1); CREATININE 1.4 mg/dL (0.7-1.3); EST CRCL DRUG DOSING (CG) 40.86 mL/min; POTASSIUM,K 3.8 mEq/L (3.5-5.1)
[2022-12-29] MEDS: Calcium Carbonate/Vitamin D3 600 MG-200 Units Tab PO SCH ×2 (08:49→20:30)
[2022-12-29] MEDS: Famotidine 20 MG Tab PO SCH (08:49)
[2022-12-29] MEDS: Multivitamin Tab PO SCH (08:49)
[2022-12-29] MEDS: Clopidogrel 75 MG Tab PO SCH (08:49)
[2022-12-29] MEDS: Tamsulosin 0.4 MG Cap.ER PO SCH (08:49)
[2022-12-29] MEDS: Aspirin 81 MG Tab.EC PO SCH (08:50)
[2022-12-29] MEDS: Sertraline 50 MG Tab PO SCH (08:50)
[2022-12-29 10:03] LABS: SLIDE REVIEW ABNORMAL SMEAR
[2022-12-29] MEDS: Acetaminophen 325 MG Tab PO PRN ×3 (14:27→20:38)
[2022-12-29] MEDS: cefTRIAXone 1 GM in Sodium Chloride 0.9% 100 ML IV SCH (17:48)
[2022-12-29] MEDS: Metoclopramide 10 MG/2 ML SDV IVPUSH PRN (20:29)
[2022-12-30] MEDS: traZODone 50 MG Tab PO PRN (00:40)
[2022-12-30 06:09] LABS: BASOPHILS ABSOLUTE AUTO 0.02 K/mm3 (0.01-0.08); BASOPHILS PERCENT AUTO 0.2 % (0.1-1.2); EOSINOPHILS ABSOLUTE AUTO 0.32 K/mm3 (0.04-0.54); EOSINOPHILS PERCENT AUTO 3.3 (0.8-7.0); HEMATOCRIT 34.2 % (40.1-51.0); HEMOGLOBIN 11.4 gm/dl (13.7-17.5); IMMATURE GRAN ABSOLUTE AUTO 0.06 K/mm3 (0.00-0.10); IMMATURE GRAN PERCENT AUTO 0.6 % (<=1.0); LYMPHOCYTES ABSOLUTE AUTO 1.14 K/mm3 (1.32-3.57); LYMPHOCYTES PERCENT AUTO 11.8 % (21.8-53.1); MEAN CORPUSCULAR HGB CONC 33.3 g/dl (32.2-35.5); MEAN PLATELET VOLUME 9.3 fl (9.4-12.3); MONOCYTES ABSOLUTE AUTO 0.43 K/mm3 (0.30-0.82); MONOCYTES PERCENT AUTO 4.4 % (5.3-12.2); NEUTROPHILS PERCENT AUTO 79.7 % (34.0-67.9); PLATELET COUNT,PLT 237 K/mm3 (163-337); WHITE BLOOD CELL COUNT,WBC 9.67 K/mm3 (4.23-9.07)
[2022-12-30] MEDS: Acetaminophen 325 MG Tab PO PRN ×2 (06:30→20:42)
[2022-12-30] MEDS: Pantoprazole 40 MG Tab.CR PO SCH ×2 (06:31→09:53)
[2022-12-30 06:36] LABS: SLIDE REVIEW ABNORMAL SMEAR
[2022-12-30 06:46] LABS: ANION GAP 11.7 (5-15); CALCIUM 7.9 mg/dL (8.5-10.1); CREATININE 1.5 mg/dL (0.7-1.3); EST CRCL DRUG DOSING (CG) 38.14 mL/min; POTASSIUM,K 3.7 mEq/L (3.5-5.1)
[2022-12-30] MEDS: Sodium Chloride 0.45% with KCl 1,000 ML IV SCH ×2 (08:19→20:44)
[2022-12-30] MEDS: Clopidogrel 75 MG Tab PO SCH (09:52)
[2022-12-30] MEDS: Famotidine 20 MG Tab PO SCH (09:52)
[2022-12-30] MEDS: Aspirin 81 MG Tab.EC PO SCH (09:52)
[2022-12-30] MEDS: Calcium Carbonate/Vitamin D3 600 MG-200 Units Tab PO SCH ×2 (09:52→20:39)
[2022-12-30] MEDS: Sertraline 50 MG Tab PO SCH (09:52)
[2022-12-30] MEDS: Tamsulosin 0.4 MG Cap.ER PO SCH (09:52)
[2022-12-30] MEDS: Multivitamin Tab PO SCH (09:52)
[2022-12-30] MEDS: cefTRIAXone 1 GM in Sodium Chloride 0.9% 100 ML IV SCH (17:18)
[2022-12-31] MEDS: Pantoprazole 40 MG Vial IVPUSH SCH ×2 (06:57→14:03)
[2022-12-31] MEDS ORDERED: Pantoprazole 40 MG Vial IVPUSH SCH ×2 (07:00)
[2022-12-31] MEDS: Tamsulosin 0.4 MG Cap.ER PO SCH (08:29)
[2022-12-31] MEDS: Multivitamin Tab PO SCH (08:29)
[2022-12-31] MEDS: Aspirin 81 MG Tab.Chew PO SCH (08:30)
[2022-12-31] MEDS: Famotidine 20 MG Tab PO SCH (08:30)
[2022-12-31] MEDS: Clopidogrel 75 MG Tab PO SCH (08:30)
[2022-12-31] MEDS: Calcium Carbonate/Vitamin D3 600 MG-200 Units Tab PO SCH (08:37)
[2022-12-31] MEDS: Sertraline 50 MG Tab PO SCH (08:37)
[2022-12-31] MEDS ORDERED: ALIROCUMAB 75 MG/ML SUBCUT ONE (09:00)
[2022-12-31] MEDS ORDERED: Silver Sulfadiazine 1% Crm 50 GM Tube TOP SCH (09:00)
[2022-12-31] MEDS: Metoclopramide 10 MG/2 ML SDV IVPUSH PRN ×2 (14:13→20:27)
[2023-01-01] MEDS: Calcium Carbonate/Vitamin D3 600 MG-200 Units Tab PO SCH ×3 (01:32→21:29)
[2023-01-01] MEDS: Pantoprazole 40 MG Vial IVPUSH SCH (08:52)
[2023-01-01] MEDS: Tamsulosin 0.4 MG Cap.ER PO SCH (08:53)
[2023-01-01] MEDS: Multivitamin Tab PO SCH (08:53)
[2023-01-01] MEDS: Aspirin 81 MG Tab.Chew PO SCH (08:53)
[2023-01-01] MEDS: Clopidogrel 75 MG Tab PO SCH (08:53)
[2023-01-01] MEDS: Sertraline 50 MG Tab PO SCH (08:53)
[2023-01-01] MEDS: Famotidine 20 MG Tab PO SCH (08:53)
[2023-01-01] MEDS: Acetaminophen 325 MG Tab PO PRN (16:00)
[2023-01-02] MEDS ORDERED: Pantoprazole 40 MG Tab.CR PO SCH (09:00)
[2023-01-02 09:14] LABS: A/G RATIO 0.6 (1-2); ALBUMIN 2.4 g/dl (3.4-5.0); BILIRUBIN TOTAL 0.6 mg/dL (0.2-1.0); BUN/CREATININE RATIO 16.7 (14-18); CALCIUM 8.4 mg/dL (8.5-10.1); CREATININE 1.5 mg/dL (0.7-1.3); EST CRCL DRUG DOSING (CG) 38.14 mL/min; PROTEIN TOTAL,TP 6.8 g/dl (6.4-8.2)
[2023-01-02] MEDS: Calcium Carbonate/Vitamin D3 600 MG-200 Units Tab PO SCH ×2 (09:17→20:18)
[2023-01-02] MEDS: Famotidine 20 MG Tab PO SCH (09:18)
[2023-01-02] MEDS: Aspirin 81 MG Tab.Chew PO SCH (09:18)
[2023-01-02] MEDS: Sertraline 50 MG Tab PO SCH (09:18)
[2023-01-02] MEDS: Tamsulosin 0.4 MG Cap.ER PO SCH (09:18)
[2023-01-02] MEDS: Clopidogrel 75 MG Tab PO SCH (09:18)
[2023-01-02] MEDS: Multivitamin Tab PO SCH (09:18)
[2023-01-02 10:25] LABS: BASOPHILS ABSOLUTE AUTO 0.03 K/mm3 (0.01-0.08); BASOPHILS PERCENT AUTO 0.3 % (0.1-1.2); EOSINOPHILS ABSOLUTE AUTO 0.16 K/mm3 (0.04-0.54); EOSINOPHILS PERCENT AUTO 1.6 (0.8-7.0); HEMATOCRIT 36.6 % (40.1-51.0); HEMOGLOBIN 12.2 gm/dl (13.7-17.5); IMMATURE GRAN ABSOLUTE AUTO 0.04 K/mm3 (0.00-0.10); IMMATURE GRAN PERCENT AUTO 0.4 % (<=1.0); LYMPHOCYTES ABSOLUTE AUTO 1.26 K/mm3 (1.32-3.57); LYMPHOCYTES PERCENT AUTO 12.4 % (21.8-53.1); MEAN CORPUSCULAR HEMOGLOBIN 30.3 pg (25.7-32.2); MEAN CORPUSCULAR HGB CONC 33.3 g/dl (32.2-35.5); MEAN CORPUSCULAR VOLUME 90.8 fl (79.0-92.2); MEAN PLATELET VOLUME 9.1 fl (9.4-12.3); MONOCYTES ABSOLUTE AUTO 0.63 K/mm3 (0.30-0.82); MONOCYTES PERCENT AUTO 6.2 % (5.3-12.2); NEUTROPHILS ABSOLUTE AUTO 8.04 K/mm3 (1.78-5.38); NEUTROPHILS PERCENT AUTO 79.1 % (34.0-67.9); PLATELET COUNT,PLT 295 K/mm3 (163-337); RED BLOOD CELL COUNT 4.03 M/mm3 (4.63-6.08); WHITE BLOOD CELL COUNT,WBC 10.16 K/mm3 (4.23-9.07)
[2023-01-02] MEDS: Acetaminophen 325 MG Tab PO PRN (20:22)
[2023-01-03] MEDS: Clopidogrel 75 MG Tab PO SCH (08:28)
[2023-01-03] MEDS: Calcium Carbonate/Vitamin D3 600 MG-200 Units Tab PO SCH ×2 (08:28→20:38)
[2023-01-03] MEDS: Multivitamin Tab PO SCH (08:28)
[2023-01-03] MEDS: Sertraline 50 MG Tab PO SCH (08:28)
[2023-01-03] MEDS: Aspirin 81 MG Tab.Chew PO SCH (08:28)
[2023-01-03] MEDS: Tamsulosin 0.4 MG Cap.ER PO SCH (08:28)
[2023-01-03] MEDS: Famotidine 20 MG Tab PO SCH (08:28)
[2023-01-03] MEDS: Acetaminophen 325 MG Tab PO PRN ×2 (09:19→17:29)
[2023-01-03] MEDS: traZODone 50 MG Tab PO PRN (21:26)
[2023-01-03] MEDS: Acetaminophen/oxyCODONE 325-5 MG Tab PO PRN (23:40)
[2023-01-04] MEDS: Tamsulosin 0.4 MG Cap.ER PO SCH (08:40)
[2023-01-04] MEDS: Famotidine 20 MG Tab PO SCH (08:41)
[2023-01-04] MEDS: Calcium Carbonate/Vitamin D3 600 MG-200 Units Tab PO SCH ×2 (08:41→20:19)
[2023-01-04] MEDS: Multivitamin Tab PO SCH (08:41)
[2023-01-04] MEDS: Aspirin 81 MG Tab.Chew PO SCH (08:41)
[2023-01-04] MEDS: Sertraline 50 MG Tab PO SCH (08:41)
[2023-01-04] MEDS: Clopidogrel 75 MG Tab PO SCH (08:41)
[2023-01-04 09:04] LABS: BASOPHILS ABSOLUTE AUTO 0.06 K/mm3 (0.01-0.08); BASOPHILS PERCENT AUTO 0.7 % (0.1-1.2); EOSINOPHILS PERCENT AUTO 2.3 (0.8-7.0); HEMATOCRIT 36.6 % (40.1-51.0); HEMOGLOBIN 12.1 gm/dl (13.7-17.5); IMMATURE GRAN ABSOLUTE AUTO 0.02 K/mm3 (0.00-0.10); IMMATURE GRAN PERCENT AUTO 0.2 % (<=1.0); LYMPHOCYTES ABSOLUTE AUTO 1.42 K/mm3 (1.32-3.57); LYMPHOCYTES PERCENT AUTO 16.2 % (21.8-53.1); MEAN CORPUSCULAR HGB CONC 33.1 g/dl (32.2-35.5); MEAN CORPUSCULAR VOLUME 90.8 fl (79.0-92.2); MEAN PLATELET VOLUME 8.7 fl (9.4-12.3); MONOCYTES PERCENT AUTO 4.6 % (5.3-12.2); NEUTROPHILS ABSOLUTE AUTO 6.67 K/mm3 (1.78-5.38); PLATELET COUNT,PLT 304 K/mm3 (163-337); RED BLOOD CELL COUNT 4.03 M/mm3 (4.63-6.08); WHITE BLOOD CELL COUNT,WBC 8.77 K/mm3 (4.23-9.07)
[2023-01-04 09:28] LABS: A/G RATIO 0.6 (1-2); ALBUMIN 2.3 g/dl (3.4-5.0); ANION GAP 12.9 (5-15); BILIRUBIN TOTAL 0.5 mg/dL (0.2-1.0); BUN/CREATININE RATIO 17.9 (14-18); CALCIUM 8.8 mg/dL (8.5-10.1); CREATININE 1.4 mg/dL (0.7-1.3); EST CRCL DRUG DOSING (CG) 22.44 mL/min; POTASSIUM,K 3.9 mEq/L (3.5-5.1); PROTEIN TOTAL,TP 6.5 g/dl (6.4-8.2)
[2023-01-04 10:41] LABS: SLIDE REVIEW NORMAL SMEAR
[2023-01-04] MEDS: Acetaminophen/oxyCODONE 325-5 MG Tab PO PRN (11:17)
[2023-01-04] MEDS: Acetaminophen 325 MG Tab PO PRN (20:18)
[2023-01-04] MEDS: traZODone 50 MG Tab PO PRN (20:18)
[2023-01-05] MEDS: Acetaminophen 325 MG Tab PO PRN (08:53)
[2023-01-05] MEDS: Multivitamin Tab PO SCH (08:54)
[2023-01-05] MEDS: Tamsulosin 0.4 MG Cap.ER PO SCH (08:55)
[2023-01-05] MEDS: Clopidogrel 75 MG Tab PO SCH (08:55)
[2023-01-05] MEDS: Calcium Carbonate/Vitamin D3 600 MG-200 Units Tab PO SCH (08:56)
[2023-01-05] MEDS: Aspirin 81 MG Tab.Chew PO SCH (08:56)
[2023-01-05] MEDS: Sertraline 50 MG Tab PO SCH (08:56)
[2023-01-05] MEDS: Famotidine 20 MG Tab PO SCH (08:56)
[2023-01-05 13:09] VITALS: BP 169/80; PULSE 55
== END 2023-01-05 13:30 | DRG 683 ==
LOC: JD.ED 13:26 → JD.MS 17:51
PROVIDERS: ADMIT Internal Medicine; ATTEND Internal Medicine
DX: N39.0 Urinary tract infection, site not specified (principal); N17.9 Acute kidney failure, unspecified; I69.351 Hemiplegia and hemiparesis following cerebral infarction affecting right dominant side; J98.11 Atelectasis; N40.0 Benign prostatic hyperplasia without lower urinary tract symptoms; K21.9 Gastro-esophageal reflux disease without esophagitis; Z66 Do not resuscitate; E87.6 Hypokalemia; R13.11 Dysphagia, oral phase; Z20.822 Contact with and (suspected) exposure to COVID-19; H54.7 Unspecified visual loss; E86.0 Dehydration; I25.10 Atherosclerotic heart disease of native coronary artery without angina pectoris; Z86.73 Personal history of transient ischemic attack (TIA), and cerebral infarction without residual deficits; K80.20 Calculus of gallbladder without cholecystitis without obstruction; E78.00 Pure hypercholesterolemia, unspecified; M19.90 Unspecified osteoarthritis, unspecified site; F03.90 Unspecified dementia, unspecified severity, without behavioral disturbance, psychotic disturbance, mood disturbance, and anxiety; G25.81 Restless legs syndrome; Z96.649 Presence of unspecified artificial hip joint; Z79.899 Other long term (current) drug therapy; Z79.02 Long term (current) use of antithrombotics/antiplatelets; I25.2 Old myocardial infarction; Z95.5 Presence of coronary angioplasty implant and graft; Z85.46 Personal history of malignant neoplasm of prostate; Z98.49 Cataract extraction status, unspecified eye; Z79.82 Long term (current) use of aspirin; Z98.890 Other specified postprocedural states
CPT/HCPCS: 0241U; 36415; 70450; 70551; 71045; 76705; 76770; 80048; 80053; 81001; 83690; 85025; 86140; 87040; 87086; 92610; 93005; 96361; 96365; 97162; 97166; 97530; 99285; 36410; 93010; 99222; 99232; 99239; 99284; A9270-GY; C9113; J0360; J0696; J1644; J2405; J2765; J3480; J3490; J7030; U0002

== ENCOUNTER 2023-11-18 08:25 | Emergency (ER) | payer MEDICARE, MEDICAID ==
[2023-11-18] MEDS: Sodium Chloride 0.9% 10 ML Syringe FLUSH PRN (09:00)
[2023-11-18 09:01] LABS: BASOPHILS PERCENT AUTO 0.3 % (0.0-1.0); HEMATOCRIT 46.7 % (42.0-52.0); HEMOGLOBIN 16.1 gm/dl (14.0-18.0); IMMATURE GRAN ABSOLUTE AUTO 0.03 K/mm3 (0.00-0.05); IMMATURE GRAN PERCENT AUTO 0.3 % (0.0-0.4); LYMPHOCYTES ABSOLUTE AUTO 0.7 K/mm3 (1.0-4.8); LYMPHOCYTES PERCENT AUTO 5.6 % (24.0-44.0); MEAN CORPUSCULAR HGB CONC 34.5 g/dl (32.0-36.0); MEAN CORPUSCULAR VOLUME 92.8 fl (83.0-99.0); MEAN PLATELET VOLUME 8.1 fl (9.4-12.4); MONOCYTES ABSOLUTE AUTO 0.6 K/mm3 (0.0-0.8); NEUTROPHILS ABSOLUTE AUTO 10.6 K/mm3 (1.8-7.7); NEUTROPHILS PERCENT AUTO 88.8 % (41.0-71.0); PLATELET COUNT,PLT 230 K/mm3 (150-400); RED BLOOD CELL COUNT 5.03 M/mm3 (4.52-5.90); WHITE BLOOD CELL COUNT,WBC 11.89 K/mm3 (3.9-11.3)
[2023-11-18 09:19] LABS: LACTIC ACID 3.2 mmol/L (0.4-2.0)
[2023-11-18 09:20] LABS: A/G RATIO 0.7 (1-2); ALBUMIN 4.3 g/dl (3.4-5.0); ANION GAP 22.1 (5-15); BILIRUBIN TOTAL 0.4 mg/dL (0.2-1.0); BUN/CREATININE RATIO 20.9 (14-18); C-REACTIVE PROTEIN 2.99 mg/dL (<0.30); CALCIUM 10.2 mg/dL (8.5-10.1); CREATININE 2.3 mg/dL (0.7-1.3); EST CRCL DRUG DOSING (CG) 24.24 mL/min; MAGNESIUM 2.2 mg/dL (1.8-2.4); POTASSIUM,K 4.1 mEq/L (3.5-5.1); PROTEIN TOTAL,TP 10.1 g/dl (6.4-8.2)
[2023-11-18 09:41] LABS: CORONAVIRUS COVID-19 NAA NEGATIVE (NEGATIVE); INFLUENZA A NAA NEGATIVE (NEGATIVE); RESPIRATORY SYNCYTIAL VIR NAA NEGATIVE (NEGATIVE)
[2023-11-18] MEDS: Sodium Chloride 0.9% 1,000 ML IV ONE (09:57)
[2023-11-18 10:40] LABS: APPEARANCE,URINE SLT CLOUDY (Clear); BILIRUBIN,URINE 1+ (Negative); COLOR,URINE YELLOW (Yellow); GLUCOSE,URINE NEGATIVE (Negative); KETONES,URINE NEGATIVE (Negative); LEUKOCYTE ESTERASE,URINE 1+ (Negative); NITRITE,URINE NEGATIVE (Negative); OCCULT BLOOD,URINE 3+ (Negative); PH,URINE 5.5 (5.0-8.0); PROTEIN,URINE 3+ (Negative); UROBILINOGEN,URINE 0.2 (0.2-1.0)
[2023-11-18 11:03] LABS: BACTERIA,URINE FEW /hpf (FEW); MUCUS,URINE MODERATE /hpf (FEW); SQUAMOUS EPITHELIAL CELLS,UR 0-5 /hpf (0-5); WBC CLUMPS,URINE RARE /hpf (NOT SEEN)
[2023-11-18] MEDS: cefTRIAXone 1 GM in Sodium Chloride 0.9% 100 ML IV ONE (11:50)
[2023-11-18 14:40] VITALS: BP 136/80; PULSE 75
== END 2023-11-18 13:50 | disposition home or self-care (01) ==
LOC: JD.ED 08:25
DX: N35.811 Other urethral stricture, male, meatal (principal); Q54.9 Hypospadias, unspecified; N39.0 Urinary tract infection, site not specified; I25.10 Atherosclerotic heart disease of native coronary artery without angina pectoris; E78.00 Pure hypercholesterolemia, unspecified; I25.2 Old myocardial infarction; K21.9 Gastro-esophageal reflux disease without esophagitis; Z88.1 Allergy status to other antibiotic agents; Z88.0 Allergy status to penicillin; Z88.8 Allergy status to other drugs, medicaments and biological substances; Z79.899 Other long term (current) drug therapy; Z86.19 Personal history of other infectious and parasitic diseases; Z86.16 Personal history of COVID-19; Z95.5 Presence of coronary angioplasty implant and graft
CPT/HCPCS: 0241U; 36415; 71045; 80053; 81001; 81003; 83605; 83735; 85025; 86140; 87040; 87086; 96361; 96365; 99284; J0696; J3490; J7030